=== PATIENT | female | born 1970 | race Caucasian/White ===

== ENCOUNTER 2017-04-21 20:25 | Emergency (ER) | payer BC, MEDICAID ==
[~2017-04-21] VITALS: Ht 160 cm; Wt 77.1 kg
[2017-04-21] MEDS ORDERED: RT-ALBUTEROL/IPRATROPIUM 3 ML (DUONEB) VIAL INH ONE (20:45)
--- NOTE | 2017-04-21 20:52 | ED Respiratory ---
General Chief Complaint: Cough/Cold/Flu Symptoms Stated Complaint: CHEST BURNING;POSS PNEUMONIA Source: patient Exam Limitations: no limitations History of Present Illness Date Seen by Provider: Apr 21, 2017 Time Seen by Provider: 20:38 Initial Comments Patient presents to the ER by private conveyance with a chief complaint for the past 3 weeks she's had progressively worsening burning starting in her epigastric region moving up the liver chest which she equates with the last time she had that she had a pneumonia. She's had cough nonproductive, no fevers but some chills. She's had no sweats, nausea vomiting or diarrhea. She's had no history of coronary disease or family history of coronary disease. She does have asthma and she thought this might of been the case since she had a little bit of shortness of breath so she called her doctor at home in [place] and he prescribed Ventolin which she used and only had modest relief of her symptoms. She says she's used all kinds of antacids, Pepcid, PPIs with no relief of her burning sensation. She has not been immobilized but for the past 2 or 3 days she just didn't feel well so she did lay in bed and stay around the house. She does not smoke cigarettes, quit over 10 years ago. She is not on blood thinners or oral contraceptives. She is having nasal congestion, bilateral maxillary facial pain and feeling of fullness and ringing in both ears for the past several weeks. Allergies and Home Medications Allergies Coded Allergies: morphine (Verified Allergy, Unknown, 04/21/17) Constitutional: chills, No diaphoresis, No fever, malaise, No weakness EENTM: throat swelling, No hearing loss, No ear pain, No blurred vision, No double vision Respiratory: cough, No phlegm, short of breath (mild), No wheezing Cardiovascular: see HPI, chest pain, No edema, No Hx of Intervention, No palpitations, No syncope, No vascular heart diseas Gastrointestinal: No abdominal pain, No constipation, No diarrhea Genitourinary: No discharge, dysuria : No Musculoskeletal: No back pain, No joint pain Skin: No pruritus, No rash Psychiatric/Neurological: Headache, Denies Numbness, Denies Paresthesia Past Brubsyb-Pydbke-Pgefpq Hx Patient Social History Alcohol Use: Denies Use Recreational Drug Use: No Smoking Status: Former Smoker 2nd Hand Smoke Exposure: No Recent Foreign Travel: No Contact w/Someone Who Travel: No Recent Hopitalizations: No Seasonal Allergies Seasonal Allergies: No Surgeries History of Surgeries: Yes (colon) Surgeries: Bladder Surgery, Gallbladder, Hysterectomy Respiratory History of Respiratory Disorde: Yes Respiratory Disorders: Asthma Integumentary History of Skin or Integumenta: No Physical Exam Vital Signs Vital Signs - First Documented Capillary Refill : General Appearance: WD/WN, no apparent distress Eyes: Bilateral Eye Normal Inspection, Bilateral Eye PERRL, Bilateral Eye EOMI HEENT: PERRL/EOMI, No tonsillar exudate, other (bilateral TMs with mucoid effusion nonbulging, dull but without loss of landmarks. No erythema or injection. Maxillary sinus tenderness to palpation bilaterally. No frontal sinus tenderness.) Neck: non-tender, full range of motion, supple, normal inspection Respiratory: chest non-tender, lungs clear, no respiratory distress, no accessory muscle use, decreased breath sounds Cardiovascular: normal peripheral pulses, regular rate, rhythm, no edema Gastrointestinal: normal bowel sounds, non tender Extremities: non-tender, normal inspection, no pedal edema, no calf tenderness , normal capillary refill (As a child no) Neurologic/Psychiatric: no motor/sensory deficits, alert, normal mood/affect, oriented x 3 Skin: normal color, warm/dry Progress/Results/Core Measures Suspected Sepsis SIRS Temperature: Pulse: Respiratory Rate: Laboratory Tests 04/21/17 20:50: White Blood Count 6.2 Blood Pressure / Mean: Laboratory Tests 04/21/17 20:50: Creatinine 0.77, Platelet Count 299, Total Bilirubin 0.3 Results/Orders Lab Results Laboratory Tests Test 04/21/17 20:50 04/21/17 21:30 Range/Units White Blood Count 6.2 4.3-11.0 10^3/uL Red Blood Count 4.55 4.35-5.85 10^6/uL Hemoglobin 13.6 11.5-16.0 G/DL Hematocrit 40 35-52 % Mean Corpuscular Volume 88 80-99 FL Mean Corpuscular Hemoglobin 30 25-34 PG Mean Corpuscular Hemoglobin Concent 34 32-36 G/DL Red Cell Distribution Width 13.8 10.0-14.5 % Platelet Count 299 130-400 10^3/uL Mean Platelet Volume 10.0 7.4-10.4 FL Neutrophils (%) (Auto) 56 42-75 % Lymphocytes (%) (Auto) 36 12-44 % Monocytes (%) (Auto) 7 0-12 % Eosinophils (%) (Auto) 1 0-10 % Basophils (%) (Auto) 0 0-10 % Neutrophils # (Auto) 3.5 1.8-7.8 X 10^3 Lymphocytes # (Auto) 2.2 1.0-4.0 X 10^3 Monocytes # (Auto) 0.5 0.0-1.0 X 10^3 Eosinophils # (Auto) 0.1 0.0-0.3 10^3/uL Basophils # (Auto) 0.0 0.0-0.1 10^3/uL Sodium Level 139 135-145 MMOL/L Potassium Level 3.7 3.6-5.0 MMOL/L Chloride Level 103 98-107 MMOL/L Carbon Dioxide Level 25 21-32 MMOL/L Anion Gap 11 5-14 MMOL/L Blood Urea Nitrogen 10 7-18 MG/DL Creatinine 0.77 0.60-1.30 MG/DL Estimat Glomerular Filtration Rate > 60 BUN/Creatinine Ratio 13 Glucose Level 113 H 70-105 MG/DL Calcium Level 8.7 8.5-10.1 MG/DL Total Bilirubin 0.3 0.1-1.0 MG/DL Aspartate Amino Transf (AST/SGOT) 36 H 5-34 U/L Alanine Aminotransferase (ALT/SGPT) 50 0-55 U/L Alkaline Phosphatase 77 40-136 U/L Troponin I < 0.30 <0.30 NG/ML C-Reactive Protein High Sensitivity 0.49 0.00-0.50 MG/DL Total Protein 6.8 6.4-8.2 GM/DL Albumin 3.9 3.2-4.5 GM/DL Lipase 24 8-78 U/L Urine Color YELLOW Urine Clarity CLEAR Urine pH 8 5-9 Urine Specific [place] 1.010 L 1.016-1.022 Urine Protein NEGATIVE NEGATIVE Urine Glucose (UA) NEGATIVE NEGATIVE Urine Ketones NEGATIVE NEGATIVE Urine Nitrite NEGATIVE NEGATIVE Urine Bilirubin NEGATIVE NEGATIVE Urine Urobilinogen NORMAL NORMAL MG/DL Urine Leukocyte Esterase 2+ H NEGATIVE Urine RBC (Auto) NEGATIVE NEGATIVE Urine RBC NONE /HPF Urine WBC 5-10 H /HPF Urine Squamous Epithelial Cells 2-5 /HPF Urine Crystals NONE /LPF Urine Bacteria TRACE /HPF Urine Casts NONE /LPF Urine Mucus NEGATIVE /LPF Urine Culture Indicated YES My Orders Orders - NATHAN PHAN Cbc With Automated Diff (04/21/17 20:43) Comprehensive Metabolic Panel (04/21/17 20:43) Hs C Reactive Protein (04/21/17 20:43) Lipase (04/21/17 20:43) Ua Culture If Indicated (04/21/17 20:43) Chest Pa/Lat (2 View) (04/21/17 20:43) Albuterol/Ipra Inhalation Soln (Duoneb I (04/21/17 20:45) Saline Lock/Iv-Start (04/21/17 20:43) Svn Sm Volume Nebulizer Rt-Rfs (04/21/17 20:43) Troponin I (04/21/17 21:02) Ekg Tracing (04/21/17 21:02) Lidocaine 2% Viscous 15 Ml (Xylocaine Vi (04/21/17 21:15) Antacid Suspension (Mylanta Suspension (04/21/17 21:15) Famotidine Injection (Pepcid Injection) (04/21/17 21:13) Urine Culture (04/21/17 21:30) Rocephin 1 Gm Iv (1 X Dose) (04/21/17 22:15) Dexamethasone Injection (Decadron Inject (04/21/17 22:15) Medications Given in ED Current Medications Medications Dose Ordered Sig/Maranda Route Start Time Stop Time Status Last Admin Dose Admin Al Hydrox/Mg Hydrox/Simethicone 30 ml ONCE ONCE PO 04/21/17 21:15 04/21/17 21:16 DC 04/21/17 21:59 30 ML Albuterol/ Ipratropium 3 ml ONCE ONCE INH 04/21/17 20:45 04/21/17 20:47 DC 04/21/17 21:06 3 ML Lidocaine HCl 15 ml ONCE ONCE PO 04/21/17 21:15 04/21/17 21:16 DC 04/21/17 21:59 15 ML Vital Signs/I&O Vital Sign - Last 12Hours 04/21/17 04/21/17 04/21/17 20:38 20:38 21:06 Temp 96.3 Pulse 100 Resp 18 B/P (MAP) 123/81 (95) Pulse Ox 96 97 O2 Delivery Room Air Room Air Room Air Capillary Refill : Progress Note #1: Time: 20:51 Progress Note Is a history of asthmas with any of her breathing treatment see if that opens up any airways although right now don't hear anything that sounds adventitious. We'll get a chest x-ray with 2 views. Possibilities include GI however we'll look for pneumonia/bronchitis. She certainly had some chills and evidence of sinus infection. Were not going to swab her throat for strep because oral going to ideally treat her for her sinus infection as well as use some topical nasal steroids to help with her otitis media effusion. Progress Note #2: Time: 22:07 Progress Note Have discussed appropriate treatment of her sinus infection, otitis media effusion and UTI and the patient would also like some steroids since she's having some shortness of breath give her dexamethasone before she leaves. We'll send Omnicef to cover her UTI and sinusitis. ECG Initial ECG Impression Date: Apr 21, 2017 Initial ECG Impression Time: 21:10 Initial ECG Rate: 86 Initial ECG Rhythm: Normal Sinus Initial ECG Intervals: Normal Initial ECG Impression: Normal, Nonspecific Changes Initial ECG Comparisson: No Previous ECG Available Comment No ST segment elevation or depression. Diagnostic Imaging Diagonstic Imaging: Xray Plain Films/CT/US/NM/MRI: chest (2v) Comments No acute cardiopulmonary processes noted. Reviewed: Reviewed by Me Departure Impression Impression: Primary Impression: Maxillary sinusitis, acute Qualified Codes: J01.00 - Acute maxillary sinusitis, unspecified Additional Impressions: Otitis media with effusion Qualified Codes: H65.93 - Unspecified nonsuppurative otitis media, bilateral Urinary tract infection Qualified Codes: N30.00 - Acute cystitis without hematuria Disposition: 01 HOME, SELF-CARE Condition: Stable Departure-Patient Inst. Decision time for Depature: 22:09 Referrals: NO,LOCAL PHYSICIAN (PCP) Primary Care Physician Patient Instructions: Sinusitis, Adult (DC) Add. Discharge Instructions: Take the antibiotics twice a day to completion. Drink plenty of fluids. Use Tylenol 1000 mg every 6 hours and/or ibuprofen 800 mg every 8 hours. All discharge instructions reviewed with patient and/or family. Voiced understanding. Scripts Fluticasone Propionate (Flonase Allergy Relief) 9.9 Ml [place].susp 1 PUFF NS DAILY for 14 Days, #1 EACH 0 Refills Prov: NATHAN PHAN 04/21/17 Cefdinir (Cefdinir) 300 Mg Capsule 300 MG PO BID for 9 Days, #18 CAP 0 Refills Prov: NATHAN PHAN 04/21/17 NATHAN PHAN Apr 21, 2017 20:52
[2017-04-21 21:01] LABS: BASOPHILS % (AUTO) 0 % (0-10); EOSINOPHILS # (AUTO) 0.1 10^3/uL (0.0-0.3); EOSINOPHILS % (AUTO) 1 % (0-10); HEMATOCRIT 40 % (35-52); HEMOGLOBIN 13.6 G/DL (11.5-16.0); LYMPHOCYTES # (AUTO) 2.2 X 10^3 (1.0-4.0); LYMPHOCYTES % (AUTO) 36 % (12-44); MEAN CORPUSCULAR HEMOGLOBIN 30 PG (25-34); MEAN CORPUSCULAR HGB CONC 34 G/DL (32-36); MEAN CORPUSCULAR VOLUME 88 FL (80-99); MONOCYTES # (AUTO) 0.5 X 10^3 (0.0-1.0); MONOCYTES % (AUTO) 7 % (0-12); NEUTROPHILS # (AUTO) 3.5 X 10^3 (1.8-7.8); NEUTROPHILS % (AUTO) 56 % (42-75); PLATELET COUNT 299 10^3/uL (130-400); RED BLOOD COUNT 4.55 10^6/uL (4.35-5.85); RED CELL DISTRIBUTION WIDTH 13.8 % (10.0-14.5); WHITE BLOOD COUNT 6.2 10^3/uL (4.3-11.0)
[2017-04-21] MEDS ORDERED: FAMOTIDINE 20MG/2ML IV (PEPCID) IV STA (21:13)
[2017-04-21] MEDS ORDERED: ANTACID SUSP 30 ML UDC (MYLANTA) PO ONE (21:15)
[2017-04-21] MEDS ORDERED: LIDOCAINE 2% VISCOUS 15 ML UDC PO ONE (21:15)
[2017-04-21 21:21] LABS: ALANINE AMINOTRANSFERASE 50 U/L (0-55); ALBUMIN 3.9 GM/DL (3.2-4.5); ALKALINE PHOSPHATASE 77 U/L (40-136); BILIRUBIN,TOTAL 0.3 MG/DL (0.1-1.0); BUN/CREATININE RATIO 13; CALCIUM 8.7 MG/DL (8.5-10.1); CARBON DIOXIDE 25 MMOL/L (21-32); CHLORIDE 103 MMOL/L (98-107); CREATININE SERUM 0.77 MG/DL (0.60-1.30); GFR ESTIMATED > 60; GLUCOSE 113 MG/DL (70-105); LIPASE 24 U/L (8-78); POTASSIUM 3.7 MMOL/L (3.6-5.0); SODIUM 139 MMOL/L (135-145); TOTAL PROTEIN 6.8 GM/DL (6.4-8.2)
[2017-04-21 21:40] LABS: BILIRUBIN,URINE NEGATIVE (NEGATIVE); CLARITY,URINE CLEAR; COLOR,URINE YELLOW; GLUCOSE, URINE (UA) NEGATIVE (NEGATIVE); KETONES,URINE NEGATIVE (NEGATIVE); LEUKOCYTE ESTERASE ,URINE 2+ (NEGATIVE); NITRITE,URINE NEGATIVE (NEGATIVE); PH,URINE 8 (5-9); PROTEIN,URINE NEGATIVE (NEGATIVE); UROBILINOGEN,URINE NORMAL (NORMAL)
[2017-04-21 21:50] LABS: BACTERIA,URINE TRACE /HPF
--- NOTE | 2017-04-21 22:00 | Diagnostic Imaging Report ---
EXAMINATION: Chest (PA and lateral). CLINICAL INDICATION: 46-year-old female, chest pain. COMPARISON: None. FINDINGS: Heart size and mediastinal contours are unremarkable. There is no identified pneumothorax. There is no pleural effusion. There is no identified focal airspace consolidation. Right upper quadrant surgical clips likely relate to prior cholecystectomy. IMPRESSION: No identified acute cardiopulmonary abnormality. Dictated by: Dictated on workstation # [id number]
[2017-04-21] MEDS ORDERED: FLUT9.9S NS (22:11)
[2017-04-21] MEDS ORDERED: CEFD300C3 PO (22:11)
[2017-04-21] MEDS ORDERED: DEXAMETHASONE 10 MG/ML (DECADRON) 1 ML VIAL IV ONE (22:15)
[2017-04-21] MEDS ORDERED: cefTRIAXone INJECTION 1,000 MG in NS (IVPB) 50 ML IV ONE (22:15)
[2017-04-21 22:50] VITALS: BP 130/74
== END 2017-04-21 22:50 | disposition home or self-care (01) ==
LOC: ER 20:28
DX: J01.00 Acute maxillary sinusitis, unspecified (principal); H65.93 Unspecified nonsuppurative otitis media, bilateral; N39.0 Urinary tract infection, site not specified; J45.909 Unspecified asthma, uncomplicated; Z88.5 Allergy status to narcotic agent; Z87.891 Personal history of nicotine dependence; Z90.710 Acquired absence of both cervix and uterus
CPT/HCPCS: 36415; 71046; 80053; 81000; 83690; 84484; 85025; 86141; 87088; 93005; 94640; 96365; 96375

== ENCOUNTER 2018-02-25 16:35 | Emergency (ER) | payer MEDICARE, BC, OTHER | END 2018-02-25 18:18 | disposition home or self-care (01) | LOC: ER 16:35 ==